=== PATIENT | female | born 1990 | race Caucasian/White ===

== ENCOUNTER 2017-12-22 03:34 | Inpatient (IN) | payer OTHER ==
[~2017-12-22] VITALS: Ht 180.3 cm; Wt 78.2 kg
[2017-12-22 04:07] LABS: HEMATOCRIT 36.1 % (36.0-46.0); MCH 29.7 PG (29.0-34.0); MCHC 33.2 G/DL (30.0-36.0); MCV 89.4 FL (83-99); PLATELET COUNT 235 K/uL (156-360); RBC DIS.WIDTH-CV 12.9 % (11.8-14.6); RBC DIS.WIDTH-SD 42.5 % (39-53); RED BLOOD COUNT 4.04 M/uL (3.80-5.20); WHITE BLOOD COUNT 9.8 K/uL (4.1-10.2)
[2017-12-22 04:15] LABS: ALBUMIN 3.7 g/dL (3.2-4.8)
[2017-12-22 04:16] LABS: CHLORIDE 105 mEq/L (99-109); POTASSIUM 4.3 mEq/L (3.7-5.4); SODIUM 141 mEq/L (136-147)
[2017-12-22 04:18] LABS: GLUCOSE 87 mg/dL (70-99); TOTAL PROTEIN 7.5 g/dL (6.4-8.3)
[2017-12-22 04:20] LABS: TOTAL BILIRUBIN 0.3 mg/dL (0.0-1.0)
[2017-12-22 04:21] LABS: ALKALINE PHOSPHATASE 76 IU/L (3-129)
[2017-12-22 04:22] LABS: GFR ESTIMATE (CALCULATED) > 59 mL/min/
[2017-12-22 04:23] LABS: AST (GOT) 26 IU/L (2-34); UREA NITROGEN (BUN) 21 mg/dL (9-23)
[2017-12-22 04:25] LABS: ALT (GPT) 50 IU/L (3-49)
[2017-12-22 04:31] LABS: QUANTITATIVE HCG < 4.0 MIU/ML
[2017-12-22 05:01] LABS: APPEARANCE CLEAR ((CLEAR)); BILIRUBIN NEGATIVE; BLOOD NEGATIVE; COLOR YELLOW ((YELLOW)); GLUCOSE (STRIP) NEGATIVE; KETONES NEGATIVE; LEUKOCYTES NEGATIVE; NITRITE NEGATIVE; PROTEIN (STRIP) NEGATIVE; SPECIFIC GRAVITY 1.027 (1.000-1.030); UCUL ADDED? NO
[2017-12-22 05:38] LABS: LIPASE 15 U/L (1.0-51.0)
[2017-12-22 07:20] LABS: SOURCE SWAB
[2017-12-22] MEDS ORDERED: ONE DAILY MULT1 EAC1 PO (09:51)
[2017-12-22] MEDS ORDERED: NAPROSYN250 MG PO (09:52)
[2017-12-22 11:40] VITALS: BP 108/59
[2017-12-22 16:25] VITALS: BP 116/62
[2017-12-22 21:16] VITALS: BP 110/55
[2017-12-22 23:43] VITALS: BP 104/52
[2017-12-23 03:48] VITALS: BP 107/55
[2017-12-23 06:38] LABS: HEMATOCRIT 32.9 % (36.0-46.0); HEMOGLOBIN 10.5 G/DL (11.9-15.5); MCH 29.7 PG (29.0-34.0); MCHC 31.9 G/DL (30.0-36.0); MCV 92.9 FL (83-99); PLATELET COUNT 174 K/uL (156-360); RBC DIS.WIDTH-SD 44.7 % (39-53); RED BLOOD COUNT 3.54 M/uL (3.80-5.20); WHITE BLOOD COUNT 7.1 K/uL (4.1-10.2)
[2017-12-23 07:00] LABS: ALBUMIN 3.1 G/DL (3.2-4.8); ALKALINE PHOSPHATASE 61 IU/L (3-129); ALT (GPT) 38 IU/L (3-49); AST (GOT) 24 IU/L (2-34); CHLORIDE 104 MEQ/L (99-109); CREATININE 0.9 MG/DL (0.6-1.3); GFR ESTIMATE (CALCULATED) > 59 mL/min/; GLUCOSE 106 mg/dL (70-99); SODIUM 140 MEQ/L (136-147); TOTAL BILIRUBIN 0.2 MG/DL (0.0-1.0); TOTAL PROTEIN 6.7 G/DL (6.4-8.3); UREA NITROGEN (BUN) 13 mg/dL (9-23)
[2017-12-23 10:29] VITALS: BP 109/54
[2017-12-23 10:39] LABS: HIV-1/2 AB/AG COMBO Nonreactive
[2017-12-23 12:45] VITALS: BP 122/51
[2017-12-23 16:52] VITALS: BP 123/57
[2017-12-24 00:12] VITALS: BP 113/58
[2017-12-24 07:48] VITALS: BP 116/57
[2017-12-24 12:18] VITALS: BP 115/57
[2017-12-24 15:54] VITALS: BP 122/62
[2017-12-25 00:16] VITALS: BP 100/51
[2017-12-25 07:43] VITALS: BP 112/54
[2017-12-25 09:28] LABS: BASOPHIL (%) 0.4 % (0-1); EOSINOPHIL (%) 4.5 % (0-5); EOSINOPHIL COUNT 0.3 K/uL (0-0.3); HEMATOCRIT 38.8 % (36.0-46.0); HEMOGLOBIN 12.4 G/DL (11.9-15.5); IMMATURE GRANULOCYTE (%) 0.2 % (0.0-0.7); LYMPHOCYTE (%) 23.6 % (15-42); LYMPHOCYTE COUNT 1.3 K/uL (1.0-2.8); MCH 29.2 PG (29.0-34.0); MCV 91.5 FL (83-99); MONOCYTE (%) 6.7 % (3-12); MONOCYTE COUNT 0.4 K/uL (0-0.8); NEUTROPHIL (%) 64.6 % (45-76); NEUTROPHIL COUNT 3.6 K/uL (1.8-6.4); PLATELET COUNT 212 K/uL (156-360); RBC DIS.WIDTH-CV 12.9 % (11.8-14.6); RED BLOOD COUNT 4.24 M/uL (3.80-5.20); WHITE BLOOD COUNT 5.5 K/uL (4.1-10.2)
[2017-12-25] MEDS ORDERED: MONDOXYNE NL100 MG PO (10:26)
[2017-12-25] MEDS ORDERED: FLAGYL500 MG PO (10:26)
[2017-12-25] MEDS ORDERED: IBUPROFEN800 MG PO (10:26)
== END 2017-12-25 15:52 | disposition home or self-care (01) | DRG 757 ==
LOC: EME 03:34 → 2EAST 10:11 → EDOF 10:11 → ENRESERV 10:12 → 2EAST 11:27
PROVIDERS: Emergency Medicine; Obstetrics & Gynecology
PROC: 0W9J30Z Drainage of Pelvic Cavity with Drainage Device, Percutaneous Approach (ICD-10-PCS; principal; 2017-12-24)
DX: N70.93 Salpingitis and oophoritis, unspecified (principal); N73.9 Female pelvic inflammatory disease, unspecified; A74.81 Chlamydial peritonitis; Z86.19 Personal history of other infectious and parasitic diseases; F17.200 Nicotine dependence, unspecified, uncomplicated; F11.10 Opioid abuse, uncomplicated; K65.8 Other peritonitis
CPT/HCPCS: 49406; 74177; 76705; 76856; 80053; 81003; 83605; 83690; 84702; 85025; 85027; 87040; 87070; 87075; 87205; 87210; 87389; 87491; 87591; 99281; 99285; C1729; C1769; J0696; J2310; J3010; J7050; S0074